=== PATIENT | female | born 1960 | race Caucasian/White ===

== ENCOUNTER → 2017-06-09 | Outpatient (CLI) | payer OTHER ==
[~2017-06-09] VITALS: Ht 154.9 cm; Wt 71.2 kg
[~2017-06-09] MED LIST: CALCIUM500 M4 PO; SINGULAIR10 MG PO; SYNTHROID50 MCG PO; VITAMIN D-32000 UNI2 PO; XOPENEX HF200 INHALA IH; ZOCOR20 MG PO
== END | disposition home or self-care (01) ==
LOC: AMB 08:20
DX: Z12.11 Encounter for screening for malignant neoplasm of colon (principal); D12.4 Benign neoplasm of descending colon; K63.5 Polyp of colon; Z86.010 Personal history of colon polyps; R74.8 Abnormal levels of other serum enzymes; E05.00 Thyrotoxicosis with diffuse goiter without thyrotoxic crisis or storm; E03.9 Hypothyroidism, unspecified; E78.5 Hyperlipidemia, unspecified; J45.909 Unspecified asthma, uncomplicated
CPT/HCPCS: 88305